=== PATIENT | female | born 1990 | race Caucasian/White ===

== ENCOUNTER 2018-04-11 14:43 | Observation (INO) ==
[2018-04-11 15:14] LABS: Bilirubin,Urine Negative (Negative); Clarity,Urine Cloudy (Clear); Color,Urine Yellow (Yellow); Glucose,Urine (UA) Normal (Normal); Ketones,Urine Negative (Negative)
[2018-04-11 15:15] LABS: Blood,Urine Trace (Negative); Leukocyte Esterase,Urine Large (Negative); Nitrite,Urine Positive (Negative); PH,Urine 6.5 pH Units (5.0-8.0); Protein,Urine Trace mg/dL (Neg-Trace); Specific Gravity,Urine 1.022 (1.010-1.025); Urobilinogen,Urine Normal (Normal)
[2018-04-11 15:17] LABS: Bacteria,Urine Few per hpf (None-Few); Hyaline Casts,Urine None Seen per lpf (None-Few); Squamous Epithelial Cell,Urine Many per lpf (None-Few); WBC,Urine 50-100 per hpf (0-3)
[2018-04-11 15:38] LABS: Amphetamine Screen,Urine Negative ng/mL (Cutoff=1000); Barbiturate Screen,Urine Negative ng/mL (Cutoff=200); Benzodiazepines Screen,Urine Negative ng/mL (Cutoff=200); Cannabinoid Screen,Urine Negative ng/mL (Cutoff = 50); Cocaine Screen,Urine Negative ng/mL (Cutoff= 300); Opiate Screen,Urine Negative ng/mL (Cutoff=300); Phencyclidine Screen,Urine Negative ng/mL (Cutoff=25)
[2018-04-11] MEDS ORDERED: cefTRIAXone 500 MG VIAL IM ONE (16:39)
--- NOTE | 2018-04-11 17:07 | OB/GYN Progress Note ---
Date of Encounter: 04/11/18 Time of Encounter: 15:00 - Assessment and Plan (1) Urinary tract infection Current Visit: Yes Status: Acute Patient offered IV antibiotics given flank pain but pt states she would like to go home. Patient given 500mg IM Rocephin with 1.5ml 1% Lidocaine. Patient will be sent home with 500mg Keflex BID X 7 days. Precautions given. Qualifiers: Urinary tract infection type: acute cystitis Hematuria presence: without hematuria Qualified Code(s): N30.00 - Acute cystitis without hematuria (2) Right lower quadrant abdominal pain Current Visit: Yes Status: Acute (3) Flank pain Current Visit: Yes Status: Acute (4) 33 weeks gestation of Current Visit: Yes Status: Acute (5) NST (non-stress test) reactive Current Visit: Yes Status: Acute Subjective - Subjective Principal diagnosis: RLQ pain Interval history: The patient is a 28 year old () with a history of miscarriage in September of 2017. The patient is complaining of right lower quadrant pain that began suddenly while at work this morning around 10am. The patient denies any heavy lifting or abnormal exertion prior to the initial onset. The patient states that the pain began in her right flank and migrated over the period of one hour to her right lower abdominal quadrant. The patient states that the pain is now 4/10 on the pain scale, dull and achy in nature and constant. The patient denies fever, headache, blurred vision, chest pain, shortness of breath , nausea, vomiting, other abdominal pains, vaginal discharge, leaking, bleeding , dysuria or hematuria. Good FM. Antepartum ROS: new complaints, movement normal, no loss of fluid, no vaginal bleeding, no contractions Objective - Vital Signs Vital Signs: Intake and Output 04/11/18 04/11/18 04/11/18 07:59 15:59 23:59 Other: Weight 88.1 kg Patient Weight 04/11/18 23:59 Weight 88.1 kg - Exam FHR: category 1 FHR comments: Reactive NST 135 BPM Auscultation: bilateral: normal Abdomen: Present: normal appearance, soft, gravid. Absent: rigidity, distention , organomegaly, tenderness Uterus: Present: normal. Absent: tenderness - Labs Labs: Abnormal lab results Urine Clarity Cloudy (Clear) A 04/11/18 15:00 Urine Blood Trace (Negative) H 04/11/18 15:00 Urine Nitrite Positive (Negative) A 04/11/18 15:00 Ur Leukocyte Esterase Large (Negative) H 04/11/18 15:00 Urine Microscopic RBC 5-15 per hpf (0-3) H 04/11/18 15:00 Urine Microscopic WBC 50-100 per hpf (0-3) H 04/11/18 15:00 Ur Squamous Epith Cells Many per lpf (None-Few) H 04/11/18 15:00 Ur Culture Indicated? NO. (NO) A 04/11/18 15:00
== END 2018-04-11 17:30 | disposition home or self-care (01) ==
LOC: 1NENULAB
PROVIDERS: ADMIT Obstetrics & Gynecology; ATTEND Obstetrics & Gynecology

== ENCOUNTER 2018-04-24 07:13 | Observation (INO) ==
[2018-04-24 08:43] LABS: Bilirubin,Urine Negative (Negative); Blood,Urine Negative (Negative); Color,Urine Yellow (Yellow); Glucose,Urine (UA) Normal (Normal); Ketones,Urine Negative (Negative); Leukocyte Esterase,Urine Negative (Negative); Nitrite,Urine Negative (Negative); PH,Urine 6.5 pH Units (5.0-8.0); Protein,Urine Negative (Neg-Trace); Specific Gravity,Urine 1.019 (1.010-1.025); Urobilinogen,Urine Normal (Normal)
[2018-04-24 08:45] LABS: Bacteria,Urine None Seen per hpf (None-Few); Hyaline Casts,Urine None Seen per lpf (None-Few); Squamous Epithelial Cell,Urine Many per lpf (None-Few)
[2018-04-24 08:48] LABS: Clarity,Urine Clear (Clear)
[2018-04-24 09:17] LABS: Amphetamine Screen,Urine Negative ng/mL (Cutoff=1000); Barbiturate Screen,Urine Negative ng/mL (Cutoff=200); Benzodiazepines Screen,Urine Negative ng/mL (Cutoff=200); Cannabinoid Screen,Urine Negative ng/mL (Cutoff = 50); Cocaine Screen,Urine Negative ng/mL (Cutoff= 300); Opiate Screen,Urine Negative ng/mL (Cutoff=300); Phencyclidine Screen,Urine Negative ng/mL (Cutoff=25)
--- NOTE | 2018-05-08 10:23 | OB/GYN Progress Note ---
Date of Encounter: 04/24/18 Time of Encounter: 11:40 - Assessment and Plan (1) 34 weeks gestation of Status: Acute Follow up with OB as scheduled PTL precautions scheduled Discharge home (2) Low back pain during in third trimester Status: Acute Tylenol PRN heating pad prn chiropractor prn (3) NST (non-stress test) reactive Status: Acute Subjective - Subjective Principal diagnosis: back pain in Interval history: Ms. Mullen presents with c/o low back pain in third trimester. She endorses good fm and denies ctx, lof, vb. Denies dysuria and other urinary symptoms. Antepartum ROS: new complaints, movement normal, no loss of fluid, no vaginal bleeding, no contractions Objective - Exam FHR: category 1 Auscultation: bilateral: normal Abdomen: Present: normal appearance, soft, gravid Uterus: Present: normal, firm - Labs Labs: Abnormal lab results Urine Microscopic RBC 3-5 per hpf (0-3) H 04/24/18 07:35 Ur Squamous Epith Cells Many per lpf (None-Few) H 04/24/18 07:35
== END 2018-04-24 09:33 | disposition home or self-care (01) ==
LOC: 1NENULAB
PROVIDERS: ADMIT Advanced Practice Midwife; ATTEND Advanced Practice Midwife

== ENCOUNTER 2018-05-10 12:26 | Observation (INO) ==
[2018-05-10 10:57] LABS: Bilirubin,Urine Negative (Negative); Blood,Urine Small (Negative); Color,Urine Yellow (Yellow); Glucose,Urine (UA) Normal (Normal); Ketones,Urine 40 mg/dL (Negative); Leukocyte Esterase,Urine Small (Negative); Nitrite,Urine Negative (Negative); Protein,Urine 30 mg/dL (Neg-Trace); Specific Gravity,Urine 1.019 (1.010-1.025); Urobilinogen,Urine Normal (Normal)
[2018-05-10 11:00] LABS: Clarity,Urine Cloudy (Clear)
[2018-05-10] MEDS: Ondansetron ODT 4 MG TAB.RAPDIS SL ONE ×2 (11:04→11:23)
[2018-05-10 11:11] LABS: Mucus,Urine Moderate (Few); Squamous Epithelial Cell,Urine Many per lpf (None-Few)
[2018-05-10 11:12] LABS: Bacteria,Urine Many per hpf (None-Few); Calcium Oxalate Crystals,Urine Present
[2018-05-10 11:13] LABS: Transitional Epi Cells,Urine Few per hpf (None-Few)
[2018-05-10 11:17] LABS: Amphetamine Screen,Urine Negative ng/mL (Cutoff=1000); Barbiturate Screen,Urine Negative ng/mL (Cutoff=200); Benzodiazepines Screen,Urine Negative ng/mL (Cutoff=200); Cannabinoid Screen,Urine Negative ng/mL (Cutoff = 50); Cocaine Screen,Urine Negative ng/mL (Cutoff= 300); Opiate Screen,Urine Negative ng/mL (Cutoff=300); Phencyclidine Screen,Urine Negative ng/mL (Cutoff=25)
--- NOTE | 2018-05-10 12:39 | OB/GYN Progress Note ---
Date of Encounter: 05/10/18 Time of Encounter: 12:37 - Assessment and Plan (1) Pain of round ligament affecting , antepartum Current Visit: Yes Status: Acute Ondansetron resolved emesis Follow up with Dr. Chatman on Monday as scheduled Rest, heat prn Discharge home. Subjective - Subjective Principal diagnosis: round ligament pain Interval history: Ms. Mullen presents with c/o right sided pain starting at 0400 this morning. She states she has also been nauseated and has vomited. She endorses good fm and denies lof, vb, ctx. Antepartum ROS: new complaints, movement normal, no loss of fluid, no vaginal bleeding, no contractions Objective - Vital Signs Vital Signs: Intake and Output 05/09/18 05/10/18 05/10/18 23:59 07:59 15:59 Other: Weight 88.677 kg Patient Weight 05/10/18 23:59 Weight 88.677 kg - Exam FHR: auscultation normal, category 1 Auscultation: bilateral: normal Abdomen: Present: normal appearance, soft, gravid Uterus: Present: normal, firm Cervical dilation: 0 Cervix effacement: 50 station: -3 - Labs Labs: Abnormal lab results Ur Specimen Adequacy See below A 05/10/18 10:30 Urine Clarity Cloudy (Clear) A 05/10/18 10:30 Urine Protein 30 mg/dL (Neg-Trace) H 05/10/18 10:30 Urine Ketones 40 mg/dL (Negative) H 05/10/18 10:30 Urine Blood Small (Negative) H 05/10/18 10:30 Ur Leukocyte Esterase Small (Negative) H 05/10/18 10:30 Urine Microscopic RBC 5-15 per hpf (0-3) H 05/10/18 10:30 Urine Microscopic WBC 5-15 per hpf (0-3) H 05/10/18 10:30 Ur Squamous Epith Cells Many per lpf (None-Few) H 05/10/18 10:30 Urine Bacteria Many per hpf (None-Few) H 05/10/18 10:30 Urine Mucus Moderate (Few) H 05/10/18 10:30 Ur Culture Indicated? NO. (NO) A 05/10/18 10:30
== END 2018-05-10 12:40 | disposition home or self-care (01) ==
LOC: 1NENULAB
PROVIDERS: ADMIT Advanced Practice Midwife; ATTEND Advanced Practice Midwife

== ENCOUNTER 2018-05-22 07:56 | Inpatient (IN) ==
[2018-05-22] MEDS ORDERED: miSOPROStol 25 MCG TABLET VG PRN (08:08)
[2018-05-22] MEDS ORDERED: Naloxone 0.4 MG/ML INJ IVP PRN (08:09)
[2018-05-22] MEDS ORDERED: Ondansetron 4 MG/2 ML VIAL IVP PRN (08:09)
[2018-05-22] MEDS ORDERED: Lidocaine 1% 20 ML MDV INFILT PRN (08:09)
[2018-05-22] MEDS ORDERED: *HR* Nalbuphine 10 MG/ML AMPUL IVP PRN (08:09)
[2018-05-22] MEDS ORDERED: Metoclopramide 10 MG/2 ML VIAL IVP PRN (08:09)
[2018-05-22] MEDS ORDERED: Famotidine 20 MG/2 ML VIAL IVP PRN (08:09)
[2018-05-22] MEDS ORDERED: Ringers Solution, Lactated 1,000 ML IVC SCH (08:15)
[2018-05-22] MEDS ORDERED: miSOPROStol 100 MCG TABLET PO PRN (08:51)
[2018-05-22 08:56] LABS: Basophils % 0.2 %; Eosinophils # 0.1 K/mcL (0.0-0.6); Eosinophils % 0.5 %; Hematocrit 31.8 % (35.3-44.9); Hemoglobin 10.8 g/dL (11.5-15.4); Immature Granulocytes % 2.3 % (0-4); Lymphocytes # 2.1 K/mcL (0.6-4.6); Lymphocytes % 16.5 %; Mean Corpuscular Hemoglobin 29.1 pg (28.0-33.3); Mean Corpuscular Volume 85.7 fL (83.0-100.0); Mean Platelet Volume 11.2 fL (9.4-12.4); Monocytes # 0.7 K/mcL (0.0-1.3); Monocytes % 5.1 %; Neutrophils # 9.7 K/mcL (1.6-8.9); Platelet Count 152 K/mcL (140-400); Red Blood Count 3.71 M/mcL (3.82-4.97); Red Cell Distribution Width 15.9 % (11.5-14.5); Segmented Neutrophils % 75.4 %
[2018-05-22 09:19] LABS: Amphetamine Screen,Urine Negative ng/mL (Cutoff=1000); Barbiturate Screen,Urine Negative ng/mL (Cutoff=200); Benzodiazepines Screen,Urine Negative ng/mL (Cutoff=200); Cannabinoid Screen,Urine Negative ng/mL (Cutoff = 50); Cocaine Screen,Urine Negative ng/mL (Cutoff= 300); Opiate Screen,Urine Negative ng/mL (Cutoff=300); Phencyclidine Screen,Urine Negative ng/mL (Cutoff=25)
[2018-05-22] MEDS ORDERED: Ringers Solution, Lactated 500 ML IVC ONE (09:40)
[2018-05-22] MEDS ORDERED: EPHEDrine 50 MG/ML VIAL IVP PRN (09:40)
--- NOTE | 2018-05-22 09:44 | Anesthesia Evaluation PreOp ---
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 questions and concerns answered about possibility of difficult epidural placement.) : Yes Alcohol Use: none Drug use: none Medications and Allergies Vit/Iron Fumarate/FA [ Tablet] 1 tab PO DAILY 04/11/18 [History ] Ferrous Sulfate PO DAILY 04/24/18 [History] Omeprazole 04/24/18 [History] 3 Allergy/AdvReac Type Severity Reaction Status Date / Time No Known Allergies Allergy Verified 04/11/18 16:55 - Meds/Allergy Pre-op Review Medications Reviewed: Yes Allergies Reviewed: Yes Beta Blockers on Current Med List: No Anesthesia Results - Labs 05/22/18 08:25 Anesthesia Exam O2 Sat Height 1.65 m Height 1.65 m Weight 91.4 kg Weight 91.4 kg NPO (# of Hours): 6 Pain Scale: 1 Pain Scale Used: Numeric (1 - 10) - HEENT Pupil (Motor): Pupils equal Mallampati: II Teeth: Normal Oral Opening: Greater than 3 - SALES STOCK ASSOCIATE LOC: Oriented SALES STOCK ASSOCIATE Motor: Normal RUE, Normal LUE, Normal RLE, Normal LLE, Normal Face SALES STOCK ASSOCIATE Sensory: Normal: RUE, LUE, RLE, LLE, Face - Cardiac Rhythm: Regular Murmur: None JVD: No Carotid Bruit: No - Pulmonary Breath Sounds: bilateral Clear Respiratory Effort: Symmetrical Anesthesia Assess/Plan ASA Score: 2 Modified [place] Scale for Level of Consciousness: Cooperative, oriented, and tranquil Anesthetic Plan: General (plan b), Regional (plan a) Autologous Blood: Yes Monitoring Plan: Standard Monitors Recovery Plan: PACU
[2018-05-22] MEDS ORDERED: Epidural Premix (fent/bupiv) 110 ML EP SCH (09:45)
--- NOTE | 2018-05-22 10:00 | OB/GYN History & Physical ---
Date of Encounter: 05/22/18 Time of Encounter: 09:55 Assessment and Plan (1) 39 weeks gestation of Current visit: Yes Status: Acute Admit to Labor and Delivery for induction of labor at 39 weeks GA PO Cytotec 50mcg Cervical Mccracken places by Dr. Chatman with AROM Nubain and Epidural as desired Anticipate Vaginal Delivery History of Present Illness Chief complaint: Induction of Labor HPI: Ms. Mullen is a 28 year old female at 39 weeks 0 days gestational age who presents for induction of labor. Pt endorses good movement, and denies leakage of fluid or vaginal bleeding. Denies complications during this . Current medications include vitamins and Ferrous Sulfate. Pt has been followed by Dr. Chatman throughout this . 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 Labs: Blood Type: A-negative Rh Ab: Positive GBS Status: Negative Hep B Surf Ag: Nonreactive HIV Ab: Nonreactive Treponema Ab: Negative G/C: Negative Varicella: Immune Rubella: Immune Urine Drug Screen: Negative Past Med Surg Social Fam HX - Past Medical History Attestation: Yes The following information was validated with the patient. Source: patient Medical history: no medical history Psychiatric history: no psych history - Past Surgical History Additional surgical history: lympth node removed right lateral neck (10/2014) - Social History Smoking Status: Never smoker Smokeless Tobacco Status: No Alcohol use: none Drug use: none - Family History Mother Living Status: Still Living Hx Family Cardiac Disorders: No Hx Family Respiratory Disorders: No Hx Family Cancer: No Hx Family GI Disorders: No Hx Family Genitourinary Disorders: No Hx Family Endocrine Disorder: No Hx Family Musculoskeletal Disorders: No Hx Family Neuromuscular Disorders: No Hx Family Neurologic Disorders: No Hx Family HEENT Disorders: No Hx Family Autoimmune Disorders: No Hx Family Reproductive Disorders: No Hx Family Psychosocial Disorders: No Hx Family Medical Disorders: Yes (Gallbladder removed) Obstetrical History - Pregnancies : 2 Para: 0 Term: 0 : 0 Ab's: 1 Livin Medications and Allergies Vit/Iron Fumarate/FA [ Tablet] 1 tab PO DAILY 04/11/18 [History ] Ferrous Sulfate PO DAILY 04/24/18 [History] Omeprazole 04/24/18 [History] 3 Allergy/AdvReac Type Severity Reaction Status Date / Time No Known Allergies Allergy Verified 04/11/18 16:55 Review of System OB All systems PM: reviewed and no additional remarkable complaints except as stated Exam - Vital Signs Vital signs: Vital signs reviewed and stable - Constitutional Constitutional: well developed, well nourished, no acute distress, average body habitus - HEENT HEENT: EOMI, Normocephaly, Mucus Membranes Moist - Neck Neck exam: full ROM - Lungs Respiratory exam: CTAB - Cardiovascular Cardiovascular exam: RRR, +S1, +S2 - Abdomen Abdomen: Present: bowel sounds normal, gravid, non tender - Extremities Extremities exam: full ROM, normal capillary refill, normal inspection, warm, radial pulses palpable and symmetrical - Cervix Dilation: 2 (per Dr. Chatman) Effacement: 70 Station: -3 Results Result Diagrams: 05/22/18 08:25 Abnormal lab results WBC 12.9 K/mcL (4.3-11.1) H 05/22/18 08:25 RBC 3.71 M/mcL (3.82-4.97) L 05/22/18 08:25 Hgb 10.8 g/dL (11.5-15.4) L 05/22/18 08:25 Hct 31.8 % (35.3-44.9) L 05/22/18 08:25 RDW 15.9 % (11.5-14.5) H 05/22/18 08:25 Neutrophils # 9.7 K/mcL (1.6-8.9) H 05/22/18 08:25 All other labs normal. - VTE Reasons for not Prescribing Prophylaxis: Treatment not Indicated - Low risk for VTE - Attending Attestation I examined this patient and my medical decision-making was reviewed with the Resident Physician. I agree with the documented findings, disposition and treatment plan as described except to the extent set forth below. Saroj Chatman
--- NOTE | 2018-05-22 11:59 | OB Labor Progress Note ---
Date of Encounter: 05/22/18 Time of Encounter: 07:45 Labor Progress Note - Subjective Subjective: Patient's 28-year-old 1 para 0 at 39-0/7 weeks giving her for induction of labor patient is not having any contractions was 2 cm 80% -3 on admission and I recommended a Mccracken induction with Cytotec. - Cervix Cervix: 2/80/-3 40 catheter placed within the cervical os 40 mL balloon inflated. During the insertion we did have artificial rupture membranes of clear fluid. We did leave the balloon in place at this time. - Heart Tones Heart Tones: heart tones 140s reactive - [place]: No contractions noted - Plan Plan: We will switch from vaginal Cytotec to by mouth Cytotec plan is still to anticipate a vaginal delivery
--- NOTE | 2018-05-22 12:01 | OB Labor Progress Note ---
Date of Encounter: 05/22/18 Time of Encounter: 11:59 Labor Progress Note - Subjective Subjective: Patient's catheter just came out she is not really feeling any contractions at this time. She did have a prolonged deceleration earlier but baby did recover has had some variables and some early decelerations. We are having difficulty monitoring the contraction pattern but otherwise doing well with heart tones at this time did recommend placing internal monitors. - Cervix Cervix: 4-5/80/-3 - Heart Tones Heart Tones: scalp monitor placed heart tones 140s reactive occasional early decelerations and - [place]: IUPC placed contractions every 2 minutes and adequate - Plan Plan: will continue currant care might need amnioinfusion, anticipate
[2018-05-22] MEDS ORDERED: Acetaminophen 325 MG TABLET PO PRN (12:02)
[2018-05-22] MEDS ORDERED: Oxytocin 20 units/ LR 1000 mL 20 UNIT/1,000 ML BAG IVC SCH (14:45)
[2018-05-22] MEDS ORDERED: Oxytocin 20 units/ LR 1000 mL 20 UNIT/1,000 ML BAG IVC ONE (14:54)
--- NOTE | 2018-05-22 17:12 | OB Labor Progress Note ---
Date of Encounter: 05/22/18 Time of Encounter: 17:09 Labor Progress Note - Subjective Subjective: patient states she is begining to feel contractions now, - Cervix Cervix: 5/90/0 - Heart Tones Heart Tones: FHT's 140's reactive - [place]: contraction every 3-5 min irregular on pitocin - Plan Plan: continue current care anticipate
--- NOTE | 2018-05-22 19:24 | OB Labor Progress Note ---
Date of Encounter: 05/22/18 Time of Encounter: 19:22 Labor Progress Note - Subjective Subjective: Patient is still not feeling any contractions, but still having them - Cervix Cervix: 6/80/0 - Heart Tones Heart Tones: heart tones 140s reactive - [place]: Contractions every 2-3 minutes irregular - Plan Plan: Continue increasing the Pitocin plan is to anticipate vaginal delivery
[2018-05-23] MEDS ORDERED: Lidocaine -MPF 1% 5 ML AMPUL ONE (02:14)
--- NOTE | 2018-05-23 02:41 | Anesthesia Procedures ---
Date of Encounter: 05/23/18 Time of Encounter: 02:39 Procedures: Anesthesia - Epidural/Spinal Patient ID/Chart reviewed: Yes Patient examined: Yes OB Eval: Gestational age: 39 OB Eval: : 2 OB Eval: Hx Para: 0 OB Eval: Dilated at (cm): 5 OB Eval: Contractions: Non-stressed pattern Consent Obtained: Yes Supplemental Oxygen: None/Room Air Site Prep: Aseptic Technique, Sterile prep and drape, Povidone-Iodine 1% Patient position: upright Local Anesthetic: Lidocaine 1% Amount of Local Anesthetic used: 3 Touhy Needle Gauge: 18 Touhy Needle Depth (cm): 8 Catheter Depth at Skin (cm): 20 Test Dose (1.5% Lido + Epi): Volume given (mls): 5 Test Dose Result: Negative Loading Dose: Other: 6mls of epidural pharm bag premix solution Loading Dose Administered: Thru Catheter Infusion Med: 0.125% Bupivacaine w/ 2 mcg/ml Fentanyl Infusion Rate (mls/hr): 14 ([id number]) Catheter Secured in Place: Tegaderm, Tape Interspace Used: L4-L5 Loss of Resistance (LINDA): Yes Blood: No CSF: No Paresthesia: No Procedure: pt tolerated procedure well. no complications. vss. fhr stable.
[2018-05-23] MEDS ORDERED: Chloroprocaine/PF 20 ML VIAL INFILT ONE (03:52)
[2018-05-23] MEDS ORDERED: Ondansetron 4 MG/2 ML VIAL ONE (03:52)
[2018-05-23] MEDS ORDERED: EPHEDrine 50 MG/ML VIAL ONE (03:52)
[2018-05-23] MEDS ORDERED: *HR* Oxytocin 10 UNIT/ML VIAL IM ONE (03:52)
[2018-05-23] MEDS ORDERED: *HR* Morphine Sulfate/PF 10 MG/10 ML AMPUL ONE (03:56)
--- NOTE | 2018-05-23 04:14 | OB/GYN Procedure Note ---
Delivery - Delivery Date: 05/23/18 Provider: Dylon Chatman Intrapartum events: other(please specify) (hypertension) Delivery induction: AROM, oxytocin Delivery monitor: internal FHT, internal uterine Anesthesia: local, epidural Quantitated Blood Loss: 300 - (s) Infant A Delivery Date: 05/23/18 Infant Delivery Time: 03:37 Presentation: vertex Position: BRIDGET Route of delivery: Gender: Female Viability: Viable - Repair Episiotomy: none Laceration Description: Perineal - 2nd Degree - Complications Delivery complications: none - Disposition Mom disposition: stable in LDR [place] disposition: stable in LDR
--- NOTE | 2018-05-23 04:17 | OB Labor Progress Note ---
Date of Encounter: 05/23/18 Time of Encounter: 04:16 Labor Progress Note - Subjective Subjective: Patient having repetitive late decelerations patient still approximate 6-7 cm Pitocin has been turned off discussed with patient baby not tolerating labor section required - Cervix Cervix: 6-7/80/0 - Heart Tones Heart Tones: heart tones 140s with repetitive late decelerations with every contractions - [place]: Contractions every 2-3 minutes - Plan Plan: pitocin has been turned off patient was prepped for a primary low transverse section
[2018-05-23] MEDS ORDERED: Ringers Solution, Lactated 1,000 ML ONE (04:27)
[2018-05-23] MEDS ORDERED: *HR* Phenylephrine 10 MG/ML VIAL ONE (04:49)
[2018-05-23] MEDS ORDERED: Naloxone 0.4 MG/ML INJ IVP PRN ×2 (04:50→08:19)
[2018-05-23] MEDS ORDERED: *HR* Promethazine 25 MG/ML VIAL IVP PRN (04:50)
[2018-05-23] MEDS ORDERED: *HR* OxyCODONE Immed Rel 5 MG TABLET PO PRN (04:50)
[2018-05-23] MEDS ORDERED: *HR* Morphine 2 MG/ML SYRINGE IVP PRN ×2 (04:50→06:37)
[2018-05-23] MEDS ORDERED: Ondansetron 4 MG/2 ML VIAL IVP ONE (04:50)
[2018-05-23] MEDS ORDERED: Acetaminophen IV 1,000 MG/100 ML INFUS..BTL IVPB ONE (04:50)
[2018-05-23] MEDS ORDERED: Ringers Solution, Lactated 1,000 ML IVC SCH ×2 (05:00→08:19)
--- NOTE | 2018-05-23 05:25 | OB/GYN Procedure Note ---
Section - Date of procedure: 05/23/18 Preop diagnosis: category 3 FHT tracing, other (IUP at 39 0/7, repetitive late decelerations) Post-op diagnosis: same (with brow presentation in OP position) Procedure: primary low transverse Surgeon: Dylon Bello Blood Loss: 300 Was there an information assistant present: Yes Smart [employer] Specialist: King Telles ([id number]) Anesthesiologist: Tosin Lou Lead Based Paint Technician: King Lam Anesthesia Type: Epidural section complications: none Disposition: L&D Recovery Room Specimens: Placenta - Infant (s) A Infant Delivery Date: 05/23/18 Infant Delivery Time: 04:44 Presentation: face or brow Position: LOP Route of delivery: other ( section) Gender: Female Viability: Viable Pounds: 6 Ounces: 11 Gram Weight: 3.025 kg at 1 minute: 8 at 5 minutes: 9 Shoulder Dystocia: not encountered Specimens collected: cord blood Placenta: spontaneous Cord: 3 umbilical vessels - Narrative Narrative: Patient is a 28-year-old 1 para 0 at 39-0/7 weeks who is brought in for induction of labor secondary to term . Patient was a Mccracken induction however during the placement of Mccracken catheter we did course artificial rupture membranes catheter was left in place and she was given 50 g of Cytotec. Catheter fell out a few hours later patient was 4-5 cm throughout this time patient was having occasional decelerations but baby would recover patient was cyril appropriate but did space out we did place the patient on some Pitocin. Throughout the day patient would have runs of late decelerations Pitocin would be backed off those resolved finding of the patient in the contraction pattern with we felt she was making cervical change patient to 6 cm and started having repetitive late . We turned the Pitocin off even after the contractions spaced out remains and it was decided this time a section would be called secondary to category 3 strip. Procedure: Patient was taken the operating room where epidural anesthesia was found adequate. She was placed in the dorsal supine position with a left tilt prepped and draped in usual fashion Timeout was then obtained. A Pfannenstiel incision was made with a scalpel and carried down through the underlying tissue to the fascia was identified. The fascia was negative midline extended laterally with Gardner scissors. The superior and inferior edges of the fascia grasped tented up and dissected off the rectus muscles. Rectus muscles were in midline parietal peritoneum was then identified tented up and entered sharply. This was extended superiorly and inferiorly with Metzenbaum scissors. The bladder blade is inserted the vesicouterine peritoneum was identified tented up and entered sharply. This was extended laterally and bladder flap was created digitally. The lower uterine segment was incised with a scalpel extended laterally with bandage scissors. The infant's head was noted to be in occiput posterior presentation but after we got the 's head was noted it was a brow presentation. The was finally delivered the cord was clamped and cut infant was handed off to waiting pediatric team. Cord blood was collected. Placenta was then delivered spontaneously with a three-vessel cord. I was unable to exteriorize the uterus so the uterus was cleaned of all clots and debris internally than the low uterine segment was closed using 0 Vicryl in a running locking stitch. Good hemostasis was noted the gutters were cleaned of all clots and debris and copiously irrigated would not bleeding. The fascia was brought together using a #1 stratafix in a running stitch then the skin was closed using a 4-0 Vicryl in a subcuticular manner. All needles lap sponge counts were correct 3 she did receive preoperative antibiotics and a PRINEO dressing was applied. Patient was taken to the recovery room in stable condition.
--- NOTE | 2018-05-23 06:37 | Anesthesia Evaluation Post Op ---
Date of Encounter: 05/23/18 Time of Encounter: 06:36 - Lungs Lungs: Clear Ascult./Percussion - Airway Airway: Non-obstructed - Cardiovascular Regular Rate, Baseline Rhythm - Mental Status Mental Status: Alert & Oriented, Answers Appropriately - Pain Pain Scale: 3 Pain Scale used: Numeric (1 - 10) - Nausea Vomiting Nausea Vomiting: Not Present - Hydration Hydration: NPO, Mccracken catheter - Discharge PostOp Status: Transfer Patient to floor
[2018-05-23] MEDS ORDERED: Azithromycin 500 MG in D5% in Water 250 ML IVPB SCH (08:19)
[2018-05-23] MEDS ORDERED: Ondansetron 4 MG/2 ML VIAL IVP PRN (08:19)
[2018-05-23] MEDS ORDERED: Simethicone 80 MG TAB.CHEW PO PRN (08:19)
[2018-05-23] MEDS ORDERED: Rho Immune Globulin 1,500 UNIT SYRINGE IM ONE (08:19)
[2018-05-23] MEDS ORDERED: Metoclopramide 10 MG/2 ML VIAL IVP PRN (08:19)
[2018-05-23] MEDS ORDERED: *HR* OxyCODONE/APAP 5/325 TABLET PO PRN (08:19)
[2018-05-23] MEDS ORDERED: Oxytocin 20 units/ LR 1000 mL 20 UNIT/1,000 ML BAG IVC SCH (08:19)
[2018-05-23] MEDS ORDERED: *HR* OxyCODONE/APAP 10/325 TABLET PO PRN (08:19)
[2018-05-23] MEDS ORDERED: Sennosides 8.6 MG TABLET PO PRN (08:19)
[2018-05-23] MEDS: Ibuprofen 600 MG TABLET PO PRN (20:05)
[2018-05-24] MEDS: Ibuprofen 600 MG TABLET PO PRN ×3 (04:10→21:13)
[2018-05-24 07:50] LABS: Basophils % 0.2 %; Eosinophils % 0.2 %; Hematocrit 26.3 % (35.3-44.9); Immature Granulocytes % 0.9 % (0-4); Lymphocytes # 1.4 K/mcL (0.6-4.6); Lymphocytes % 11.2 %; Mean Corpuscular HGB Conc 33.1 g/dL (31.6-35.5); Mean Corpuscular Hemoglobin 28.7 pg (28.0-33.3); Mean Corpuscular Volume 86.8 fL (83.0-100.0); Monocytes # 0.6 K/mcL (0.0-1.3); Monocytes % 4.7 %; Neutrophils # 10.5 K/mcL (1.6-8.9); Platelet Count 117 K/mcL (140-400); Red Blood Count 3.03 M/mcL (3.82-4.97); Red Cell Distribution Width 16.2 % (11.5-14.5); Segmented Neutrophils % 82.8 %
[2018-05-24 07:54] LABS: Hemoglobin 8.7 g/dL (11.5-15.4)
--- NOTE | 2018-05-24 09:08 | OB/GYN Progress Note ---
Date of Encounter: 05/24/18 Time of Encounter: 09:03 - Assessment and Plan (1) delivery delivered Current Visit: Yes Status: Acute Continue routine post-op/ care Anticipate discharge home tomorrow Subjective - Subjective Principal diagnosis: S/P P C/S Interval history: S/P Delivery Day 1 Pain is well controlled Lochia is light and without clots VSS Tolerating regular diet, passing flatus Voiding without difficulty Discharge home tomorrow Patient reports: appetite normal, voiding normally, pain well controlled, ambulating normally [place]: doing well, nursing well Objective - Vital Signs Latest vital signs: Vital Signs Temp Pulse Pulse Resp BP Pulse Ox 05/24/18 08:30 98.1 F 92 18 121/82 05/24/18 04:00 97.9 F 92 14 118/73 98 05/24/18 00:02 98.1 F 96 14 124/76 97 05/23/18 19:44 99.1 F 103 14 113/74 96 05/23/18 17:26 98.7 F 101 16 113/76 05/23/18 13:10 98.7 F 98 14 117/78 96 05/23/18 11:10 98.2 F 94 94 14 117/82 98 05/23/18 09:10 98.6 F 89 14 120/84 96 Intake and Output 05/23/18 05/24/18 05/24/18 23:59 07:59 15:59 Intake Total 300 / 300 Output Total 1500 / 1500 500 / 500 Balance -1500 / -1500 -200 / -200 Intake: Oral 300 / 300 Output: Urine 500 / 500 Catheter 1500 / 1500 Other: Weight 89.613 kg Patient Weight 05/24/18 23:59 Weight 89.613 kg - Exam Lungs: bilateral: normal Chest: Normal S1, Normal S2 Extremities: Present: normal Abdomen: Present: normal appearance, soft. Absent: gravid Incision: Present: normal, intact Uterus: Present: normal, firm Fundal Height: 0 (@U) - Labs Labs: Laboratory Results - last 24 hr 05/23/18 05/24/18 05:50 07:00 WBC 12.7 H RBC 3.03 L Hgb 8.7 L D Hct 26.3 L MCV 86.8 MCH 28.7 MCHC 33.1 RDW 16.2 H Plt Count 117 L MPV 11.0 Immature Gran % 0.9 Seg Neutrophils % 82.8 Lymphocytes % 11.2 Monocytes % 4.7 Eosinophils % 0.2 Basophils % 0.2 Neutrophils # 10.5 H Lymphocytes # 1.4 Monocytes # 0.6 Eosinophils # 0.0 Basophils # 0.0 Screen NEGATIVE Baby's Blood Type O RH POSITIVE Mother's Blood Type A RH NEGATIVE Rhogam Indicated YES Rhogam Req for Mother 1
[2018-05-24] MEDS: Azithromycin 250 MG TABLET PO SCH (09:55)
[2018-05-24] MEDS: Prenatal Vit/FA 1 EACH TABLET PO SCH (09:55)
[2018-05-24] MEDS ORDERED: Rho Immune Globulin 1,500 UNIT SYRINGE IM ONE (16:36)
[2018-05-25] MEDS: Azithromycin 250 MG TABLET PO SCH (08:13)
[2018-05-25] MEDS: Prenatal Vit/FA 1 EACH TABLET PO SCH (08:14)
[2018-05-25] MEDS: Ibuprofen 600 MG TABLET PO PRN (08:14)
[2018-05-25 08:46] VITALS: BP 125/84
--- NOTE | 2018-05-25 08:46 | Discharge Summary ---
Date of Encounter: 05/25/18 Time of Encounter: 08:37 - Discharge Diagnosis (1) delivery delivered Priority: Primary Status: Acute Comments: S/P Delivery Day 2 Pain is well controlled Lochia is light and without clots VSS Tolerating regular diet, passing flatus Voiding without difficulty Discharge home today - Discharge Medications Prescriptions: Ibuprofen [Motrin] 600 mg PO Q6HR PRN #30 tablet PRN Reason: Cramping Azithromycin [Zithromax] 250 mg PO Q24H #3 tablet Breast Pump [BREAST PUMP] 1 each .ROUTE AD #1 each Docusate [Colace] 100 mg PO BID PRN #60 capsule PRN Reason: Constipation Ferrous Sulfate 325 mg PO BIDWM #180 tablet OxyCODONE/APAP 5/325 [Percocet 5/325 MG] 1 each PO Q6H PRN 7 Days #28 tablet PRN Reason: Moderate pain 4-6 Home Medications: Vit/Iron Fumarate/FA [ Tablet] 1 tab PO DAILY 04/11/18 [History ] Omeprazole 04/24/18 [History] Azithromycin [Zithromax] 250 mg PO Q24H #3 tablet 05/25/18 [Rx] Breast Pump [BREAST PUMP] 1 each .ROUTE AD #1 each 05/25/18 [Rx] Docusate [Colace] 100 mg PO BID PRN #60 capsule 05/25/18 [Rx] Ferrous Sulfate 325 mg PO BIDWM #180 tablet 05/25/18 [Rx] Ibuprofen [Motrin] 600 mg PO Q6HR PRN #30 tablet 05/25/18 [Rx] OxyCODONE/APAP 5/325 [Percocet 5/325 MG] 1 each PO Q6H PRN 7 Days #28 tablet [Rx] Simethicone [Gas-X] 80 mg PO TID PRN tab.chew 05/25/18 [Rx] Allergies/Adverse Reactions: 3 Allergy/AdvReac Type Severity Reaction Status Date / Time No Known Allergies Allergy Verified 04/11/18 16:55 Data Procedures and tests throughout hospitalization: Laboratory Tests 05/22/18 05/22/18 05/23/18 08:25 08:25 05:50 WBC 12.9 H RBC 3.71 L Hgb 10.8 L Hct 31.8 L MCV 85.7 MCH 29.1 MCHC 34.0 RDW 15.9 H Plt Count 152 MPV 11.2 Immature Gran % 2.3 Seg Neutrophils % 75.4 Lymphocytes % 16.5 Monocytes % 5.1 Eosinophils % 0.5 Basophils % 0.2 Neutrophils # 9.7 H Lymphocytes # 2.1 Monocytes # 0.7 Eosinophils # 0.1 Basophils # 0.0 Urine Opiates Screen Negative Ur Barbiturates Screen Negative Ur Phencyclidine Scrn Negative Ur Amphetamines Screen Negative U Benzodiazepines Scrn Negative Urine Cocaine Screen Negative U Marijuana (THC) Screen Negative Ur Drug Screen Interp See Below Screen NEGATIVE Baby's Blood Type O RH POSITIVE Mother's Blood Type A RH NEGATIVE Rhogam Indicated YES Rhogam Req for Mother 1 05/24/18 07:00 WBC 12.7 H RBC 3.03 L Hgb 8.7 L D Hct 26.3 L MCV 86.8 MCH 28.7 MCHC 33.1 RDW 16.2 H Plt Count 117 L MPV 11.0 Immature Gran % 0.9 Seg Neutrophils % 82.8 Lymphocytes % 11.2 Monocytes % 4.7 Eosinophils % 0.2 Basophils % 0.2 Neutrophils # 10.5 H Lymphocytes # 1.4 Monocytes # 0.6 Eosinophils # 0.0 Basophils # 0.0 Urine Opiates Screen Ur Barbiturates Screen Ur Phencyclidine Scrn Ur Amphetamines Screen U Benzodiazepines Scrn Urine Cocaine Screen U Marijuana (THC) Screen Ur Drug Screen Interp Screen Baby's Blood Type Mother's Blood Type Rhogam Indicated Rhogam Req for Mother Date of admission: 05/22/18 07:56 Primary care physician: PCP NONE Discharging clinician: Nicki Dangelo Anticipated date of discharge: 05/25/18 - Patient Status Disposition: Home, Self-Care Condition: Good Functional capacity at discharge: independent ambulation Overall status at discharge: patient is progressing back to baseline - Discharge Instructions Follow Up With: NONE,PCP [Primary Care Provider] - Dylon Chatman DO [Partnered Physician] - - Diet and Activity Activity: increase activity as tolerated Diet: regular diet Hospital Course Reason for admission: IUP at term Delivery: section Episiotomy: none Laceration: none Other procedures: none complications: none Discharge diagnosis: IUP at term delivered Melbeta baby: female Time Attestation: Total time spent providing and/or coordinating discharge services: Time Spent: Less than 30 minutes - VTE Reasons for not Prescribing Prophylaxis: Treatment not Indicated - Low risk for VTE Documentation of Mechanical Device: Intermittent pneumatic compression device Exam - Constitutional Vitals: Temp Pulse Resp BP Pulse Ox 98.3 F 92 14 131/84 98 05/24/18 20:35 05/24/18 20:35 05/24/18 20:35 05/24/18 20:35 05/24/18 20:35 General appearance IM: cooperative, A&O X 3, pleasant - Respiratory Respiratory exam: Present: CTAB - Cardiovascular Cardiovascular exam IM: Present: RRR, +S1, +S2 - GI/Abdominal GI/Abdominal exam IM: normal bowel sounds, soft Incision: normal, dry, intact - Rectal Rectal exam: deferred - Uterine Tone: Firm Uterus Position: At Umbilicus, Midline - Extremities Exam Extremities exam IM: Present: normal capillary refill, normal inspection, radial pulses palpable and symmetrical - Neurological Exam Neurological exam: alert, oriented X3
== END 2018-05-25 12:35 | disposition home or self-care (01) | DRG 766 ==
LOC: 1NENULAB 07:56 → 1NENUOBS 05-23 08:26
PROVIDERS: ADMIT Obstetrics & Gynecology; ATTEND Obstetrics & Gynecology

== ENCOUNTER 2021-09-07 07:48 | Inpatient (IN) ==
[2021-09-07] MEDS ORDERED: Metoclopramide 10 MG/2 ML VIAL IVP PRN ×2 (07:56→20:59)
[2021-09-07] MEDS ORDERED: Naloxone 0.4 MG/ML INJ IVP PRN (07:56)
[2021-09-07] MEDS ORDERED: Famotidine 20 MG/2 ML VIAL IVP PRN (07:56)
[2021-09-07] MEDS ORDERED: *HR* Nalbuphine 10 MG/ML AMPUL IV PRN (07:56)
[2021-09-07] MEDS ORDERED: Lidocaine 1% 20 ML MDV ID PRN (07:56)
[2021-09-07] MEDS ORDERED: Azithromycin 500 MG in 0.9 % Sodium Chloride 250 ML IVPB PRN (07:56)
[2021-09-07] MEDS ORDERED: Ondansetron 4 MG/2 ML VIAL IVP PRN ×3 (07:56→20:59)
[2021-09-07] MEDS ORDERED: CeFAZolin 2,000 MG/120 ML BAG IVPB ONE ×2 (08:00→16:00)
[2021-09-07] MEDS ORDERED: Ringers Solution, Lactated 1,000 ML IVC SCH ×2 (08:00→20:59)
[2021-09-07 08:48] LABS: Basophils % 0.3 %; Eosinophils % 0.4 %; Immature Granulocytes % 1.5 % (0-4); Lymphocytes # 1.7 K/mcL (0.6-4.6); Lymphocytes % 18.3 %; Mean Corpuscular HGB Conc 33.3 g/dL (31.6-35.5); Mean Corpuscular Hemoglobin 29.8 pg (28.0-33.3); Mean Corpuscular Volume 89.4 fL (83.0-100.0); Mean Platelet Volume 11.2 fL (9.4-12.4); Monocytes # 0.6 K/mcL (0.0-1.3); Platelet Count 124 K/mcL (140-400); Red Blood Count 3.69 M/mcL (3.82-4.97); Red Cell Distribution Width 15.6 % (11.5-14.5); Segmented Neutrophils % 73.5 %; White Blood Count 9.5 K/mcL (4.3-11.1)
[2021-09-07] MEDS ORDERED: Oxytocin 20 units/ LR 1000 mL 20 UNIT/1,000 ML BAG IVC SCH ×3 (09:00→20:59)
[2021-09-07 09:24] LABS: Influenza A PCR Negative (Negative); Influenza B PCR Negative (Negative); Resp. Syncytial Virus PCR Negative (Negative); SARS-CoV-2 by PCR (In House) Negative (Negative)
[2021-09-07 09:34] LABS: Amphetamine Screen,Urine Negative ng/mL (Cutoff=1000); Barbiturate Screen,Urine Negative ng/mL (Cutoff=200); Benzodiazepines Screen,Urine Negative ng/mL (Cutoff=200); Cannabinoid Screen,Urine Negative ng/mL (Cutoff = 50); Cocaine Screen,Urine Negative ng/mL (Cutoff= 300); Opiate Screen,Urine Negative ng/mL (Cutoff=300); Phencyclidine Screen,Urine Negative ng/mL (Cutoff=25)
[2021-09-07 10:27] LABS: Creatinine,Urine 94 mg/dL; Protein/Creatinine Ratio,Urine 0.32 mg/mg (0.00-0.20)
[2021-09-07 10:28] LABS: BUN/Creatinine Ratio 17 (6-26); Blood Urea Nitrogen 9 mg/dL (6-20)
[2021-09-07 10:29] LABS: Alanine Aminotransferase 8 Units/L (7-52); Aspartate Amino Transferase 12 Units/L (13-39); Lactate Dehydrogenase 164 Units/L (140-271); Uric Acid 4.4 mg/dL (2.3-7.6); eGFR For African Americans > 60 (> 60); eGFR For Non-African Americans > 60 (> 60)
[2021-09-07] MEDS ORDERED: Ropivacaine/PF 0.2% 20 ML VIAL EP ONE (10:47)
[2021-09-07] MEDS ORDERED: *HR* FentaNYL (PF) 100 MCG/2 ML VIAL EP ONE (10:47)
[2021-09-07] MEDS ORDERED: EPHEDrine 50 MG/ML VIAL IVP PRN (10:47)
[2021-09-07] MEDS ORDERED: Epidural Premix (fent/bupiv) 110 ML EP SCH (11:00)
[2021-09-07] MEDS ORDERED: *HR* Morphine Sulfate/PF 10 MG/10 ML AMPUL ONE (16:12)
[2021-09-07] MEDS ORDERED: *HR* FentaNYL (PF) 100 MCG/2 ML VIAL ONE (16:12)
[2021-09-07] MEDS ORDERED: EPHEDrine 50 MG/ML VIAL ONE (16:12)
[2021-09-07] MEDS ORDERED: Acetaminophen IV 1,000 MG/100 ML BAG IVPB ONE (16:13)
[2021-09-07] MEDS ORDERED: Ketorolac 30 MG/ML VIAL ONE (16:13)
[2021-09-07] MEDS ORDERED: Ondansetron 4 MG/2 ML VIAL ONE (16:13)
[2021-09-07] MEDS ORDERED: *HR* HYDROmorphone PF 0.5 MG/0.5 ML SYRINGE IVP PRN (16:38)
[2021-09-07] MEDS ORDERED: Promethazine 6.25 MG in Water for inj. (sterile) 20 ML IVPB PRN (16:38)
[2021-09-07] MEDS ORDERED: Rho Immune Globulin 1,500 UNIT SYRINGE IM ONE (20:59)
[2021-09-07] MEDS ORDERED: *HR* OxyCODONE Immed Rel 5 MG TABLET PO PRN (20:59)
[2021-09-07] MEDS ORDERED: Simethicone 80 MG TAB.CHEW PO PRN (20:59)
[2021-09-07] MEDS: Ibuprofen 600 MG TABLET PO SCH (22:11)
[2021-09-07] MEDS: Acetaminophen 325 MG TABLET PO SCH (22:11)
[2021-09-08] MEDS: Ibuprofen 600 MG TABLET PO SCH ×3 (04:20→17:06)
[2021-09-08] MEDS: Acetaminophen 325 MG TABLET PO SCH ×3 (04:21→17:06)
[2021-09-08 05:35] LABS: Basophils % 0.1 %; Hematocrit 31.9 % (35.3-44.9); Hemoglobin 10.4 g/dL (11.5-15.4); Immature Granulocytes % 0.8 % (0-4); Lymphocytes # 1.6 K/mcL (0.6-4.6); Lymphocytes % 9.8 %; Mean Corpuscular HGB Conc 32.6 g/dL (31.6-35.5); Mean Corpuscular Hemoglobin 29.4 pg (28.0-33.3); Mean Corpuscular Volume 90.1 fL (83.0-100.0); Mean Platelet Volume 11.9 fL (9.4-12.4); Monocytes # 0.5 K/mcL (0.0-1.3); Monocytes % 3.4 %; Neutrophils # 13.7 K/mcL (1.6-8.9); Platelet Count 146 K/mcL (140-400); Red Blood Count 3.54 M/mcL (3.82-4.97); Red Cell Distribution Width 15.4 % (11.5-14.5); Segmented Neutrophils % 85.9 %
[2021-09-08] MEDS: Prenatal Vit/FA 1 EACH TABLET PO SCH (08:07)
[2021-09-08] MEDS ORDERED: NON-FORMULARY MEDICATION 1 EACH EACH (Prenat 115/Iron Fum/Folic/Dss [Prenatal 19 Tablet] 1 PO SCH (09:00)
[2021-09-08] MEDS ORDERED: Rho Immune Globulin 1,500 UNIT SYRINGE IM ONE (15:30)
[2021-09-08 21:08] VITALS: O2SAT 98
[2021-09-09] MEDS: Ibuprofen 600 MG TABLET PO SCH ×2 (02:18→08:33)
[2021-09-09] MEDS: Acetaminophen 325 MG TABLET PO SCH ×2 (02:18→08:33)
[2021-09-09 07:18] VITALS: BP 119/78; PULSE 80; TEMP 98.2
[2021-09-09] MEDS: Prenatal Vit/FA 1 EACH TABLET PO SCH (08:33)
== END 2021-09-09 13:38 | disposition home or self-care (01) | DRG 788 ==
LOC: 1NENULAB 07:48 → 1NENUOBS 21:15
PROVIDERS: ADMIT Obstetrics & Gynecology; ATTEND Obstetrics & Gynecology